=== PATIENT | male | born 1955 | race Caucasian/White ===

== ENCOUNTER 2024-08-27 11:06 | Emergency (ER) | payer SELFPAY ==
[~2024-08-27] VITALS: Ht 175.3 cm; Wt 99.8 kg
[2024-08-27 11:06] VITALS: BP 160/80; PULSE 70; RESP 18; TEMP 98.6; O2SAT 92
[2024-08-27 11:44] LABS: BASOPHIL % 0.3 % (0.2-1.2); EOSINOPHIL # 0.1 10^3/uL (0.0-0.2); EOSINOPHIL % 1.1 % (0.0-5.0); HEMOGLOBIN 15.3 g/dL (13.9-16.3); LYMPHOCYTES # 1.77 10^3/uL1 (1.0-4.8); LYMPHOCYTES % 15.1 % (24.0-44.0); MEAN CORP HGB 32.3 pg (26-34); MEAN CORP HGB CONCENTRATION 34.8 g/dL (33-36.5); MONOCYTES # 0.7 10^3/uL (0.3-0.8); MONOCYTES % 5.9 % (5.0-12.0); NEUTROPHIL # 9.1 10^3/uL (1.8-7.7); NEUTROPHILS % 77.1 % (41.0-85.0); PLATELET COUNT 206 10^3/uL (150-400); RED BLOOD CELL 4.73 10^6/uL (4.50-5.90); RED CELL DISTRIBUTION WIDTH 12.3 % (11.5-14.5); WHITE BLOOD CELL 11.7 10^3/uL (4.5-11.0)
[2024-08-27 11:47] LABS: +ADD MANUAL DIFF(NO CHRG) NO
[2024-08-27] MEDS ORDERED: ASPIRIN ONE (11:49)
[2024-08-27] MEDS: ASPIRIN PO STA (11:55)
[2024-08-27 12:02] LABS: ALANINE AMINOTRANSFERASE(ML) 32 U/L (12-78); ALBUMIN/GLOBULIN RATIO 1.025; ALKALINE PHOSPHATASE 75 U/L (50-136); ASPARTATE AMINO TRANSFERASE 30 U/L (0-35); CALCIUM 8.9 mg/dL (8.4-10.5); CARBON DIOXIDE 27.5 mmol/L (20.0-32); CREATININE SERUM 0.81 mg/dL (0.59-1.40); EST GFR, NON-AA 94.5 (>/=60); GLUCOSE 90 mg/dL (74-106); POTASSIUM 3.5 mmol/L (3.6-5.2); SODIUM 134 mmol/L (132-145)
[2024-08-27 12:04] LABS: TROPONIN I HIGH SENSITIVITY < 4 ng/L (0-75)
[2024-08-27 12:10] VITALS: BP 145/79; PULSE 73; RESP 18; O2SAT 90
[2024-08-27] MEDS ORDERED: NS 1000ML 1,000 ML ONE (12:11)
[2024-08-27] MEDS: NS 1000ML 1,000 ML IV STA (12:15)
[2024-08-27] MEDS ORDERED: NAPR-824 PO (14:07)
[2024-08-27 14:14] VITALS: BP 160/89; PULSE 77; RESP 18; O2SAT 94
== END 2024-08-27 14:14 | disposition home or self-care (01) ==
LOC: ER 11:06
DX: R07.9 Chest pain, unspecified (principal); I10 Essential (primary) hypertension; Z79.899 Other long term (current) drug therapy
CPT/HCPCS: 99285; 71045; 80053; 85025; 36415; 85379; 84484 ×2; 83605 ×2; 83690; 93005; J7030; J8499; 96360